=== PATIENT | female | born 1945 ===

== ENCOUNTER → 2018-07-04 | Day surgery (SDC) | payer MEDICARE ==
[2018-06-28 08:32] VITALS: BMI 24.3
[~2018-07-04] MED LIST: Bacitracin 500 Units/gm Oint Foilpak UD ONE; Lidocaine 2% PF (10 ml) Amp ONE; Metoprolol Succinate 25 mg XL Tab PO SCH; Midazolam 2 MG/2 ML VIAL ONE; Nitroglycerin 50mg in D5W 50 MG/250 ML BOTTLE IV ONE; Phenylephrine 10 mg/ml Inj ONE; Verapamil 2 ML ONE
[2018-07-04 07:22] LABS: BASO # 0.02 K/mm3 (0.0-2.0); BASO % 0.3 % (0.0-3.0); EOS # 0.1 (0.0-0.7); EOS % 1.5 % (1.5-5.0); GRAN # 4.05 (1.4-6.5); HEMOGLOBIN 13.4 g/dL (12.0-16.0); LYMPH % 30.8 % (22.0-35.0); MEAN CELL VOLUME 86.7 fl (80.0-105.0); MEAN CORPUSCULAR HEMOGLOBIN 29.1 pg (25.0-35.0); MEAN CORPUSCULAR HGB CONC 33.6 g/dl (31.0-37.0); MEAN PLATELET VOLUME 10.1 fl (7.0-11.0); MONO # 0.4 (0.1-0.6); MONO % 5.4 % (1.0-6.0); RBC 4.6 10^6/uL (3.5-6.1); WHITE BLOOD COUNT 6.5 10^3/ul (4.5-11.0)
[2018-07-04 07:30] LABS: BLOOD UREA NITROGEN 14 mg/dL (7-21); CALCIUM 9.2 mg/dL (8.4-10.5); GFR NON-AFRICAN AMERICAN > 60; HDL CHOLESTEROL 52 mg/dL (29-60); INR 0.97; PARTIAL THROMBOPLASTIN TIME 29.6 Seconds (25.1-36.5); PROTHROMBIN TIME 11.2 SECONDS (9.4-12.5)
[2018-07-04 07:40] LABS: LDL CHOLESTEROL 97 mg/dL (0-129)
[2018-07-04 08:16] VITALS: RESP 18
--- NOTE | 2018-07-04 09:56 | CARD ---
APPROVED REPORT Date of service: 07/04/2018 EKG Measurement Heart [id number] <Conclusion> Sinus bradycardia Otherwise normal ECG
[2018-07-04 09:57] VITALS: TEMP 97.6
[2018-07-04 11:21] VITALS: O2SAT 99
[2018-07-04 12:38] VITALS: BP 155/75; PULSE 48
--- NOTE | 2018-07-04 14:26 | CARDCATH ---
PROCEDURE DATE: 07/04/2018 INDICATIONS: Ms. Bui is a 73-year-old female, who was referred to me for evaluation of symptoms of dyspnea on exertion. She underwent a nuclear stress test, which had equivocal changes on the EKG as well as on the nuclear images suggestive of a summed stress score of 3 with a mild anteroapical defect. She therefore was brought to the [facility] for further evaluation and treatment of symptoms of dyspnea on exertion along with an abnormal myocardial perfusion study. PROCEDURE PERFORMED: Left heart catheterization with selective left and right coronary angiogram, left ventriculogram, 6-Filipino left radial arterial access, wrist band for hemostasis. TECHNIQUES OF PROCEDURE: After obtaining informed consent, the patient was brought to the cardiac cath suite in post-absorptive, non-sedated state. Patient was prepped and draped in the usual sterile fashion. A 2% lidocaine was used for infiltration of anesthesia. Using modified Seldinger technique, a 6-Filipino sheath was introduced into the left radial artery. Subsequently, secondary to the tortuosities in the brachial artery and a mild to moderate obstructive lesion, Glidewire was used to negotiate through. The procedure was continued subsequently exchanging to an exchange length J-wire, diagnostic a JL4, JR4 catheters were used to engage the left and right coronary systems. Angiograms were obtained in different orthogonal views. Subsequently, a pigtail catheter was used to cross the aortic valve. LV gram was obtained in the CARTAGENA view. Hemodynamics were obtained and subsequently a pullback gradient was noted. HEMODYNAMIC FINDINGS: Left ventricular end-diastolic pressure was 15 mmHg. There was no gradient noted upon the aortic valve pullback. No AI, no MR. Left ventricular ejection fraction estimated to be 60% to 65%. CORONARY ANATOMY: Left main large-sized vessel, bifurcates into left anterior descending and left circumflex coronary artery. Left circumflex runs in the AV groove and gives off a large obtuse marginal branch. It further divides into superior inferior branches tapering into a small size vessel. A left anterior descending artery is a large-sized vessel. Has a small mid segment of myocardial bridge, gives off a large diagonal branch, it is a type C wrap around left anterior descending artery with mild nonobstructive disease. IMPRESSION: Normal left ventricular ejection fraction, mid left anterior descending myocardial bridge, nonobstructive coronary artery disease. RECOMMENDATIONS: The patient is stable to be discharged home in 3 hours. Continue the patient on baby aspirin, low-dose beta blockers along with moderate dose of statins. The patient to follow up with her primary care physician, Dr. Blane Trimble and with Dr. Vieira in 1 week's time. Thank you, Dr. Trimble for letting me participate in the care of your patient. Junior Vieira, MDDD: 07/04/2018 9:42:24
== END | disposition home or self-care (01) ==
LOC: CATH 06:51
PROVIDERS: ATTEND Internal Medicine Interventional Cardiology
DX: I25.10 Atherosclerotic heart disease of native coronary artery without angina pectoris (principal); Q24.5 Malformation of coronary vessels; I10 Essential (primary) hypertension; E78.5 Hyperlipidemia, unspecified; Z82.49 Family history of ischemic heart disease and other diseases of the circulatory system; Z80.1 Family history of malignant neoplasm of trachea, bronchus and lung; Z80.42 Family history of malignant neoplasm of prostate; R53.82 Chronic fatigue, unspecified; R06.09 Other forms of dyspnea; R94.39 Abnormal result of other cardiovascular function study